=== PATIENT | female | born 1980 | race African-American/Black ===

== ENCOUNTER 2018-09-11 04:01 | Emergency (ER) | payer SELFPAY ==
[~2018-09-11] VITALS: Ht 162.6 cm; Wt 118.4 kg
[2018-09-11 04:08] VITALS: Ht 162.6 cm; Wt 118.4 kg
[2018-09-11 06:25] VITALS: BP 140/74
== END 2018-09-11 06:25 | disposition home or self-care (01) ==
LOC: ED 04:01
DX: J20.9 Acute bronchitis, unspecified (principal)
CPT/HCPCS: 87804; J1100; J1885; J7620; Q0092